=== PATIENT | male | born 1995 | race Caucasian/White ===

== ENCOUNTER 2018-08-24 12:48 | Emergency (ER) | payer BC ==
[2018-08-24 14:27] VITALS: BP 147/68
--- NOTE | 2018-08-24 14:46 | UC ---
Rectal Pain HPI - HPI Summary HPI Summary: 22-year-old male presents with complaints of intermittent rectal bleeding for the past year. States a year ago he an accident while snowboarding where he fell onto a railing causing an injury to his anus. States he had some swelling and tenderness of the anus for a few weeks after the injury and noticed a small amount of bleeding on the toilet paper after wiping. States since that time he has had a couple more episodes where he has noticed swelling and tenderness at the anus however none recently. States he notices blood on the toilet paper most days after he has a bowel movement. Denies fever, chills, weakness, dizziness, lightheadedness, abdominal pain, nausea, vomiting, constipation, diarrhea, melena, or gross rectal bleeding. - History Of Current Complaint Chief Complaint: UCGI Stated Complaint: PERSONAL Time Seen by Provider: 08/24/18 14:13 Hx Obtained From: Patient Pain Intensity: 0 - Allergies/Home Medications Allergies/Adverse Reactions: Allergies Allergy/AdvReac Type Severity Reaction Status Date / Time pollen extracts Allergy Eyes Verified 08/24/18 14:28 Itchy/Swollen/Red/Watery seasonal allergy Allergy Eyes Uncoded 08/24/18 14:28 Itchy/Swollen/Red/Watery Home Medications: Home Medications NK [No Home Medications Reported] 08/24/18 [History Confirmed 08/24/18] PMH/Surg Hx/FS Hx/Imm Hx Previously Healthy: Yes - Denies significant PMH - Surgical History Surgical History: Yes Surgery Procedure, Year, and Place: PE Tubes, 1999, [facility] - Family History Known Family History: Positive: Non-Contributory - Social History Occupation: Student Lives: Dormitory/Roommates Alcohol Use: Daily Substance Use Type: None Smoking Status (MU): Former Smoker Type: Cigars Amount Used/How Often: 2 cigars weekly When Did the Patient Quit Smoking/Using Tobacco: 2018 - Immunization History Most Recent Influenza Vaccination: 2013 Vaccination Up to Date: Yes Review of Systems All Other Systems Reviewed And Are Negative: Yes Constitutional: Negative: Fever, Chills Respiratory: Positive: Negative Cardiovascular: Positive: Negative Gastrointestinal: Positive: Other - Rectal bleeding. Negative: Abdominal Pain, Vomiting, Diarrhea, Nausea Genitourinary: Negative: Dysuria, Hematuria, Frequency, Urgency Musculoskeletal: Positive: Negative Neurological: Positive: Negative Is Patient Immunocompromised?: No Physical Exam - Summary Physical Exam Summary: GENERAL APPEARANCE: Well developed, well nourished, alert and cooperative, and appears to be in no acute distress. CARDIAC: Normal S1 and S2. No S3, S4 or murmurs. Rhythm is regular. There is no peripheral edema, cyanosis or pallor. Extremities are warm and well perfused. Capillary refill is less than 2 seconds. Peripheral pulses intact. LUNGS: Clear to auscultation without rales, rhonchi, wheezing or diminished breath sounds. ABDOMEN: Positive bowel sounds. Soft, nondistended, nontender. No guarding or rebound. No masses or hepatosplenomegally. RECTAL: No active bleeding, external hemorrhoid, or anal fissure noted. Normal rectal tone. MUSKULOSKELETAL: ROM intact to all extremities. No joint erythema or tenderness. Normal muscular development. Normal gait. SKIN: Skin normal color, texture and turgor with no lesions or eruptions. Triage Information Reviewed: Yes Vital Signs: Initial Vital Signs Temp 98.2 F 08/24/18 14:21 Pulse 61 08/24/18 14:21 Resp 18 08/24/18 14:21 BP 147/68 08/24/18 14:21 Pulse Ox 100 08/24/18 14:21 Vital Signs Reviewed: Yes Rectal Pain Course/Dx - Course Course Of Treatment: 22-year-old male presents with complaints of intermittent rectal bleeding for the past year. States a year ago he an accident while snowboarding where he fell onto a railing causing an injury to his anus. States he had some swelling and tenderness of the anus for a few weeks after the injury and noticed a small amount of bleeding on the toilet paper after wiping. States since that time he has had a couple more episodes where he has noticed swelling and tenderness at the anus however none recently. States he notices blood on the toilet paper most days after he has a bowel movement. Denies fever, chills, weakness, dizziness, lightheadedness, abdominal pain, nausea, vomiting, constipation, diarrhea, melena, or gross rectal bleeding. Afebrile. Vital signs stable. Overall exam was unremarkable. Rectal exam revealed no active bleeding, external hemorrhoid, or anal fissure. Suspect that symptoms may be related to an internal hemorrhoid or possibly a small anal fissure however considering the duration of symptoms I'm recommending that he follow up with gastroenterology for further evaluation. Also recommending a high-fiber diet and fiber supplement plenty of fluids to maintain a soft stool and avoid straining. Anticipatory guidance and warning symptoms reviewed with the patient. Verbalizes understanding and agrees with plan of care. - Differential Dx/Diagnosis Differential Diagnosis/HQI/PQRI: Hemorrhoid(s), Rectal Fissure, Rectal Foreign Body Provider Diagnosis: Rectal bleeding Discharge - Sign-Out/Discharge Documenting (check all that apply): Patient Departure All imaging exams completed and their final reports reviewed: No Studies - Discharge Plan Condition: Stable Disposition: HOME Patient Education Materials: Rectal Bleeding (ED) Referrals: No Primary Care Phys,NOPCP [Primary Care Provider] - Larry Pereira MD [Medical Doctor] - As Soon As Possible (Call for an appointment.) Additional Instructions: There was no active bleeding noted on your exam. I suspect that your symptoms are related to either an anal fissure or internal hemorrhoid. Considering ho long you have been having symptoms I would recommend that you see gastroenterology for a further evaluation. Eat a high fiber diet or use a fiber supplement such as Metamucil or Citrucel according to directions to help keep your stool soft. Be sure to drink plenty of fluids. Follow up with Dr. Pereira, gastroenterology. Call his office to schedule an appointment. Seek immediate medical attention in the emergency if you develop severe abdominal pain, become weak or dizzy, notice a large amount of blood in your stool or in the toilet, have dark black stools, or any worsening of symptoms. - Billing Disposition and Condition Condition: STABLE Disposition: Home
== END 2018-08-24 15:10 | disposition home or self-care (01) ==
LOC: UCCORT 12:48
DX: K62.5 Hemorrhage of anus and rectum (principal); Z91.09 Other allergy status, other than to drugs and biological substances; Z87.891 Personal history of nicotine dependence
CPT/HCPCS: 99212; G0463

== ENCOUNTER 2018-11-19 10:18 | Emergency (ER) | payer BC ==
[2018-11-19 10:45] VITALS: BP 144/85
--- NOTE | 2018-11-19 11:33 | UC ---
Skin Complaint HPI - HPI Summary HPI Summary: Pt presents with request for staple removal from scalp. Pt had kecia placed a [facility] ER on 11/12/18. Pt states that he was drunk and fell down. - History of Current Complaint Chief Complaint: UCGeneralIllness Time Seen by Provider: 11/19/18 10:42 Stated Complaint: STAPLE REMOVAL[facility]ONE AT [facility] Hx Obtained From: Patient Onset/Duration: Sudden Onset, Resolved Skin Exposure Onset/Duration: Days Ago - 7 Timing: Constant Onset Severity: Mild Current Severity: None Pain Intensity: 0 Pain Scale Used: 0-10 Numeric Location: Discrete - scalp Aggravating Factor(s): Touch Alleviating Factor(s): Other - kecia Associated Signs & Symptoms: Positive: Negative Related History: Trauma - fall and laceration - Allergy/Home Medications Allergies/Adverse Reactions: Allergies Allergy/AdvReac Type Severity Reaction Status Date / Time pollen extracts Allergy Eyes Verified 11/19/18 10:42 Itchy/Swollen/Red/Watery seasonal allergy Allergy Eyes Uncoded 11/19/18 10:42 Itchy/Swollen/Red/Watery PMH/Surg Hx/FS Hx/Imm Hx Previously Healthy: Yes - Surgical History Surgical History: Yes Surgery Procedure, Year, and Place: PE Tubes, 1999, [facility] - Family History Known Family History: Positive: Non-Contributory - Social History Occupation: Student Lives: With Family Alcohol Use: Occasionally Substance Use Type: None Smoking Status (MU): Former Smoker Type: Cigars Amount Used/How Often: 2 cigars weekly Have You Smoked in the Last Year: Yes When Did the Patient Quit Smoking/Using Tobacco: 2018 - Immunization History Most Recent Influenza Vaccination: 2013 Vaccination Up to Date: Yes Review of Systems All Other Systems Reviewed And Are Negative: Yes Constitutional: Positive: Negative Skin: Positive: Other - sutures intact on scalp Eyes: Positive: Negative ENT: Positive: Negative Respiratory: Positive: Negative Cardiovascular: Positive: Negative Gastrointestinal: Positive: Negative Genitourinary: Positive: Negative Motor: Positive: Negative Neurovascular: Positive: Negative Musculoskeletal: Positive: Negative Neurological: Positive: Negative Psychological: Positive: Negative Is Patient Immunocompromised?: No Physical Exam Triage Information Reviewed: Yes Appearance: Well-Appearing Vital Signs: Initial Vital Signs Temp 97.4 F 11/19/18 10:42 Pulse 63 11/19/18 10:42 Resp 18 11/19/18 10:42 BP 144/85 11/19/18 10:42 Pulse Ox 100 11/19/18 10:42 Vital Signs Reviewed: Yes Eye Exam: Normal ENT Exam: Normal Dental Exam: Normal Neck exam: Normal Respiratory: Positive: No respiratory distress Musculoskeletal Exam: Normal Neurological Exam: Normal Psychological Exam: Normal Skin Exam: Other - three kecia intact on right side of crown of head. No drainage, no tendernes, no erytheam, skin well approximated Course/Dx - Differential Diagnoses - Skin Complaint Differential Diagnoses: Other - healing wound, staple removal - Diagnoses Provider Diagnosis: Removal of kecia, Healing laceration Discharge - Sign-Out/Discharge Documenting (check all that apply): Patient Departure All imaging exams completed and their final reports reviewed: No Studies - Discharge Plan Condition: Stable Disposition: HOME Patient Education Materials: Stitches Removal (ED) Referrals: [facility] [Outside] No Primary Care Phys,NOPCP [Primary Care Provider] - Additional Instructions: Please follow up with your your PCP as needed. - Billing Disposition and Condition Condition: STABLE Disposition: Home
== END 2018-11-19 10:56 | disposition home or self-care (01) ==
LOC: UCCORT 10:18
DX: Z48.02 Encounter for removal of sutures (principal); Z87.891 Personal history of nicotine dependence
CPT/HCPCS: 99211; G0463

== ENCOUNTER → 2019-02-12 | Day surgery (SDC) | payer BC ==
[~2019-02-12] MED LIST: Buffered Lidocaine 1% SYRIN* 1 ML/SYRINGE INTRADERM ONE; Bupivacaine 0.5%* 50 ML MDV VIAL ONE; Dexamethasone IV* 4 MG/ML 1 ML (4 MG) ONE; Famotidine IV* 10 MG/ML 2 ML (20 mg) IV ONE; Famotidine IV* 10 MG/ML 2 ML (20 mg) ONE; HYDROmorphone INJ1* 1 MG/ML SYRINGE IV PRN; Ketorolac INJ* 30 MG/ML 1 ML VIAL ONE; Labetalol IV* 5 MG/ML 20 ML VIAL ONE; Lactated Ringers 1000 ML Bag* 1,000 ML IV SCH; Lidocaine 1% INJ* 10 MG/ML 30 ML SDV ONE; Lidocaine 2% JELLY* 6 ML JELLY TOPICAL ONE; Lidocaine 2% PF * 5 ML VIAL ONE; Midazolam* 1 MG/ML 5 ML VIAL (5 MG) ONE; Naloxone* 0.4 MG/ML 1 ML VIAL IV PRN; Ondansetron INJ* 2 MG/ML VIAL IV PRN; Ondansetron INJ* 2 MG/ML VIAL ONE; Propofol* 10 MG/ML 20 ML BTL ONE; ceFAZolin 2 GM in NS PREMIX(*) 2 GM/100 ML BAG IVPB ONE; fentaNYL* 50 MCG/ML 2 ML VIAL (100 MCG VIAL) IV PRN; fentaNYL* 50 MCG/ML 2 ML VIAL (100 MCG VIAL) ONE
--- NOTE | 2019-02-12 12:55 | OP ---
Operative Report - Blank - Operative Report Date of Operation: 02/12/19 Note: OPERATIVE REPORT Pre-op: Julisa-anal drainage Post-Op: Same, pilonidal disease with sinus tract Procedure:Exam under anesthesia, excision of pilonidal disease, debridement of sinus tract and placement of drain Surgeon: MD Ada Asst: none Anes: general with local , Dr. Garcia IVF:min EBL:min Specimen: none Drain: blue vessel loop as drain Wound: 3 Findings: Pilonidal disease with sinus tract with external opening 2 cms from anal verge at 11 o'clock position To PACU
[2019-02-12 14:07] VITALS: BP 139/86
--- NOTE | 2019-02-12 21:42 | OP ---
DATE OF OPERATION: 02/12/19 - [facility] DATE OF : 89 SURGEON: Leonardo Caballero MD. T[place] MILL OPERATOR: None. ANESTHESIOLOGIST: Dr. Garcia. ANESTHESIA: General with local. PRE-OP DIAGNOSIS: Perianal drainage with external perianal opening. POST-OP DIAGNOSES: 1. Perianal drainage with external perianal opening. 2. Pilonidal disease with sinus tract. OPERATIVE PROCEDURE: Exam under anesthesia with excision of pilonidal disease, debridement of sinus tract, and placement of seton drain. IV FLUIDS: Minimal. ESTIMATED BLOOD LOSS: Minimal. SPECIMENS: None. DRAINS: One blue vessel loop as a drain. WOUND CLASSIFICATION: III. COMPLICATIONS: None. FINDINGS: The patient had pilonidal disease with midline pits in the upper tal cleft. On exam under anesthesia, there also was an external opening about 2 cm from the anal verge at about the 11 o'clock position in the prone position. Here with careful evaluation, it became evident that there was a communication between the external opening in the perianal area and the pilonidal disease. There was no evidence of perianal abscess or anal fistula. This area was opened and debrided and a drain was placed. DESCRIPTION OF PROCEDURE: Written and informed consent was obtained, preoperative antibiotics were administered, and the patient was taken to the operating room, placed in the supine position. Sequential compression devices were placed and general anesthesia was administered. He was then placed into prone jackknife position and the perianal area and buttocks were prepped and draped in the usual sterile fashion. Time-out verification was completed. On exam, it was apparent that there were 3 midline pits in the upper tal cleft without evidence of an abscess, drainage, erythema, or induration. At about the 11 o'clock position, 2 cm from the anal verge was an external chronic appearing opening. There was no evidence of abscess or other skin changes. Using an 18-gauge Angio catheter, I placed this into the external opening and injected hydrogen peroxide and this bubbled up through the midline pits in the cleft confirming a communication between the external opening and the pilonidal pits and it was evident this was pilonidal disease with an extended sinus tract exiting at a rather unusual location. It does not appear to be an anal fistula. I next proceeded to inject 0.5% Marcaine extensively within the area for postoperative pain relief. An elliptical incision was then made to excise the 3 midline pits of about a centimeter and a half. This was carried down through scar tissue and subcutaneous granulation tissue and hair, which was debrided. I was then able to pass the probe easily down to the external opening and I opened this external opening up with cautery. I used a curette to debride the entire length of the sinus tract of granulation tissue and other debris. This area was then irrigated. Rather than to proceed with a complete opening of the extended tract and wanting to discuss future surgical treatment for his apparent pilonidal disease , I placed a blue seton suture through the tract creating a loop and tied this with several 0 silk sutures to keep the tract open and draining and prevent abscess formation. Hemostasis was assured. Dry sterile dressings were applied. The patient tolerated the procedure well and was taken to the recovery room in stable condition. [id number]/CPS #: [id number] MTDMelanie
== END | disposition home or self-care (01) ==
LOC: OR 08:41
PROVIDERS: ATTEND Surgery
DX: L05.92 Pilonidal sinus without abscess (principal); K62.5 Hemorrhage of anus and rectum; K64.0 First degree hemorrhoids; Z87.891 Personal history of nicotine dependence
CPT/HCPCS: J0690; J1100; J1885; J2250; J2405; J2704; J3010; J3490

== ENCOUNTER 2019-03-25 10:28 | Emergency (ER) | payer BC ==
--- OUTSIDE RECORDS SUMMARY | 2019-03-25 10:42 | XMS REPORT | Continuity of Care Document ---
:1995 External Reference #:[id number] Author Name eLonardo Caballero MD (transmitted by agent of provider Alisa Fairbanks) Address [address] [place] [address] Problems Description No Information Available Social History Type Date Description Comments Sex Unknown ETOH Use Currently consumes alcohol varies daily Tobacco Use Start: Unknown Patient has never smoked Recreational Drug Use Current Drug User Marijuana Smoking Status Reviewed: 03/01/19 Patient has never smoked Exercise Type/Frequency Does not exercise Allergies, Adverse Reactions, Alerts Description No Known Drug Allergies Medications Description No Active Medications Immunizations Description No Information Available Vital Signs Date Vital Result Comment 03/01/2019 9:16am Heart Rate 64 /min Respiratory Rate 16 /min Body Temperature 97.3 F 02/23/2019 10:53am Heart Rate 72 /min Respiratory Rate 16 /min Body Temperature 97.6 F Results Description No Information Available Procedures Date Code Description Status 02/12/2019 69121 Excise Pilonidal Cyst Or Sinus Extensive Completed 01/27/2019 75203 Anoscopy Completed Medical Devices Description No Information Available Encounters Type Date Location Provider Dx Diagnosis Office Visit 01/27/2019 [facility] Leonardo Shirley05.91 Pilonidal cyst 1:30p Of Khai Caballero MD without abscess K62.5 Hemorrhage of anus and rectum K64.0 First degree hemorrhoids Assessments Date Code Description Provider 03/01/2019 L05.91 Pilonidal cyst without abscess Leonardo Caballero MD 02/12/2019 L05.91 Pilonidal cyst without abscess Leonardo Caballero MD 01/27/2019 L05.91 Pilonidal cyst without abscess Leonardo Caballero MD 01/27/2019 K62.5 Hemorrhage of anus and rectum Leonardo Caballero MD 01/27/2019 K64.0 First degree hemorrhoids Leonardo Caballero MD Plan of Treatment 03/01/2019 - Leonardo Caballero MDL05.91 Pilonidal cyst without abscessFollow up :4-5 weeks Functional Status Description No Information Available Mental Status Description No Information Available Referrals Description No Information Available
--- OUTSIDE RECORDS SUMMARY | 2019-03-25 10:42 | XMS REPORT | Continuity of Care Document ---
:1995 External Reference #:[id number] Author Name Leonardo Caballero MD (transmitted by agent of provider Alisa Fairbanks) Address [address] [place] [address] Problems Description No Information Available Social History Type Date Description Comments Sex Unknown ETOH Use Currently consumes alcohol varies daily Tobacco Use Start: Unknown Patient has never smoked Recreational Drug Use Current Drug User Marijuana Smoking Status Reviewed: 01/27/19 Patient has never smoked Exercise Type/Frequency Does not exercise Allergies, Adverse Reactions, Alerts Description No Known Drug Allergies Medications Description No Active Medications Immunizations Description No Information Available Vital Signs Date Vital Result Comment 01/27/2019 1:28pm Height 72 inches 6'0" Weight 180.00 lb Heart Rate 60 /min BP Systolic Sitting 120 mmHg BP Diastolic Sitting 84 mmHg Respiratory Rate 12 /min Body Temperature 98.3 F BMI (Body Mass Index) 24.4 kg/m2 Results Description No Information Available Procedures Date Code Description Status 01/27/2019 51260 Anoscopy Completed Medical Devices Description No Information Available Encounters Type Date Location Provider Dx Diagnosis Office Visit 01/27/2019 [facility] Leonardo Shirley05.91 Pilonidal cyst 1:30p Of Khai Caballero MD without abscess K62.5 Hemorrhage of anus and rectum K64.0 First degree hemorrhoids Assessments Date Code Description Provider 01/27/2019 L05.91 Pilonidal cyst without abscess Leonardo Caballero MD 01/27/2019 K62.5 Hemorrhage of anus and rectum Leonardo Caballero MD 01/27/2019 K64.0 First degree hemorrhoids Leonardo Caballero MD Plan of Treatment Future Appointment(s):02/23/2019 9:00 am - Leonardo Caballero MD at [facility]02/12/2019 2:30 pm - Leonardo Caballero MD at [facility]01/27/2019 - Leonardo Caballero MDL05.91 Pilonidal cyst without abscessFollow up:Please follow the instructions for the scheduling of your surgery. Please call if you have any questions or concerns.K62.5 Hemorrhage of anus and mwsvzeH92.0 First degree hemorrhoids Functional Status Description No Information Available Mental Status Description No Information Available Referrals Description No Information Available
--- OUTSIDE RECORDS SUMMARY | 2019-03-25 10:42 | XMS REPORT | Continuity of Care Document ---
:1995 External Reference #:[id number] Author Name Luiz Barillas MD (transmitted by agent of provider Rody Pardo) Address [address] [place] [address] Problems Description No Information Available Social History Type Date Description Comments Sex Unknown ETOH Use Currently consumes alcohol varies daily Tobacco Use Start: Unknown Patient has never smoked Recreational Drug Use Current Drug User Marijuana Smoking Status Reviewed: 02/23/19 Patient has never smoked Exercise Type/Frequency Does not exercise Allergies, Adverse Reactions, Alerts Description No Known Drug Allergies Medications Description No Active Medications Immunizations Description No Information Available Vital Signs Date Vital Result Comment 02/23/2019 10:53am Heart Rate 72 /min Respiratory Rate 16 /min Body Temperature 97.6 F 01/27/2019 1:28pm Height 72 inches 6'0" Weight 180.00 lb Heart Rate 60 /min BP Systolic Sitting 120 mmHg BP Diastolic Sitting 84 mmHg Respiratory Rate 12 /min Body Temperature 98.3 F BMI (Body Mass Index) 24.4 kg/m2 Results Description No Information Available Procedures Date Code Description Status 02/12/2019 18677 Excise Pilonidal Cyst Or Sinus Extensive Completed 01/27/2019 32049 Anoscopy Completed Medical Devices Description No Information Available Encounters Type Date Location Provider Dx Diagnosis Office Visit 01/27/2019 [facility]ardo Shirley05.91 Pilonidal cyst 1:30p Of Khai Caballero MD without abscess K62.5 Hemorrhage of anus and rectum K64.0 First degree hemorrhoids Assessments Date Code Description Provider 02/12/2019 L05.91 Pilonidal cyst without abscess Leonardo Caballero MD 01/27/2019 L05.91 Pilonidal cyst without abscess Leonardo Caballero MD 01/27/2019 K62.5 Hemorrhage of anus and rectum Leonardo Caballero MD 01/27/2019 K64.0 First degree hemorrhoids Leonardo Caballero MD Plan of Treatment 01/27/2019 - Leonardo Caballero [id number] Pilonidal cyst without abscessFollow up :Please follow the instructions for the scheduling of your surgery. Please call if you have any questions or concerns.K62.5 Hemorrhage of anus and nivpfqP70.0 First degree hemorrhoids Functional Status Description No Information Available Mental Status Description No Information Available Referrals Description No Information Available
[2019-03-25 10:46] VITALS: BP 127/85
--- NOTE | 2019-03-25 11:08 | UC ---
Throat Pain/Nasal [place] HPI - HPI Summary HPI Summary: 23-year-old male comes in with a chief complaint of sore throat headache. Been going on for about 4 days. Throat hurts worse when he swallows. Over-the- counter medicines to help some with the pain. No shortness of breath or chest congestion. - History of Current Complaint Chief Complaint: UCGeneralIllness Stated Complaint: ST Time Seen by Provider: 03/25/19 10:41 Pain Intensity: 7 - Allergies/Home Medications Allergies/Adverse Reactions: Allergies Allergy/AdvReac Type Severity Reaction Status Date / Time pollen extracts Allergy Eyes Verified 03/25/19 10:46 Itchy/Swollen/Red/Watery seasonal allergy Allergy Eyes Uncoded 03/25/19 10:46 Itchy/Swollen/Red/Watery PMH/Surg Hx/FS Hx/Imm Hx Previously Healthy: Yes - Surgical History Surgical History: Yes Surgery Procedure, Year, and Place: PE Tubes, [facility], [facility], - Family History Known Family History: Positive: Non-Contributory - Social History Alcohol Use: Weekly Alcohol Amount: 5-7x per week 1-10 drinks Substance Use Type: Cocaine, Marijuana Substance Use Comment - Amount & Last Used: cocaine 2x per month, daily marijuana Smoking Status (MU): Former Smoker Type: Cigars Amount Used/How Often: 2 cigars weekly Have You Smoked in the Last Year: Yes When Did the Patient Quit Smoking/Using Tobacco: 2018 - Immunization History Most Recent Influenza Vaccination: 2013 Vaccination Up to Date: Yes Review of Systems All Other Systems Reviewed And Are Negative: Yes Constitutional: Positive: Other - SEE HPI Skin: Positive: Negative Eyes: Positive: Negative ENT: Positive: Sore Throat Respiratory: Positive: Negative Cardiovascular: Positive: Negative Gastrointestinal: Positive: Negative Motor: Positive: Negative Neurovascular: Positive: Negative Musculoskeletal: Positive: Negative Neurological: Positive: Negative Psychological: Positive: Negative Is Patient Immunocompromised?: No Physical Exam Triage Information Reviewed: Yes Appearance: No Pain Distress, Well-Nourished, Ill-Appearing - MILD Vital Signs: Initial Vital Signs Temp 98.1 F 03/25/19 10:43 Pulse 95 03/25/19 10:43 Resp 18 03/25/19 10:43 BP 127/85 03/25/19 10:43 Pulse Ox 100 03/25/19 10:43 Vital Signs Reviewed: Yes Eye Exam: Normal Eyes: Positive: Conjunctiva Clear ENT: Positive: Pharyngeal erythema, Tonsillar swelling - 3+ RT, 2+ LEFT, Uvula midline, Other - No peritonsillar abscess appreciated on exam at this time.. Negative: Muffled voice, Hoarse voice Neck: Positive: Supple Respiratory: Positive: Lungs clear, Normal breath sounds, No respiratory distress Cardiovascular: Positive: RRR Musculoskeletal: Positive: Strength Intact, ROM Intact Neurological: Positive: Alert, Muscle Tone Normal Psychological: Positive: Age Appropriate Behavior Skin Exam: Normal Throat Pain/Nasal Course/Dx - Differential Dx/Diagnosis Provider Diagnosis: Strep pharyngitis Discharge ED - Sign-Out/Discharge Documenting (check all that apply): Patient Departure All imaging exams completed and their final reports reviewed: No Studies - Discharge Plan Condition: Stable Disposition: HOME Prescriptions: Amoxicillin PO (*) [Amoxicillin 875 MG (*)] 875 mg PO BID #20 tab Patient Education Materials: Strep Throat (ED) Referrals: [facility] [place] [facility] [Outside] Additional Instructions: FOLLOW UP WITH YOUR DOCTOR IF NOT COMPLETELY IMPROVED. GET REEVALUATED SOONER IF NOT IMPROVING OR YOUR CONDITION WORSENS OR ANY QUESTIONS OR CONCERNS. - Billing Disposition and Condition Condition: STABLE Disposition: Home
== END 2019-03-25 11:12 | disposition home or self-care (01) ==
LOC: UCCORT 10:28
DX: J02.0 Streptococcal pharyngitis (principal); R51 Headache; Z87.891 Personal history of nicotine dependence; Z91.09 Other allergy status, other than to drugs and biological substances
CPT/HCPCS: 87651; 99212; G0463

== ENCOUNTER 2019-04-03 19:16 | Emergency (ER) | payer BC ==
[2019-04-03 19:57] VITALS: BP 152/86
--- NOTE | 2019-04-03 20:38 | UC ---
Skin Complaint HPI - HPI Summary HPI Summary: Pt. dx'd with strep 03/25/19, rx'd amoxicillin 875 and has taken it for 9 days , has one more dose. today developed diarrhea and a rash. diarrhea started this morning and pt. noticed this afternoon fine rash on his abd/chest and arms. diarrhea was watery and approx 6 episodes. denies abd cramping or fever or sick contacts. Rash is not itchy. - History of Current Complaint Chief Complaint: UCGeneralIllness Time Seen by Provider: 04/03/19 19:57 Stated Complaint: CHILLS/DIARRHEA/CONGESTION Hx Obtained From: Patient Pain Intensity: 0 Aggravating Factor(s): Nothing Alleviating Factor(s): Nothing - Allergy/Home Medications Allergies/Adverse Reactions: Allergies Allergy/AdvReac Type Severity Reaction Status Date / Time pollen extracts Allergy Eyes Verified 04/03/19 19:49 Itchy/Swollen/Red/Watery seasonal allergy Allergy Eyes Uncoded 04/03/19 19:49 Itchy/Swollen/Red/Watery Home Medications: Home Medications Ibuprofen TAB* [Advil TAB*] 400 mg PO Q6H PRN 04/03/19 [History Confirmed ] PMH/Surg Hx/FS Hx/Imm Hx - Additional Past Medical History Additional PMH: no chronic conditions. Previously Healthy: Yes - Surgical History Surgical History: Yes Surgery Procedure, Year, and Place: PE Tubes, 1999, [facility], - Family History Known Family History: Positive: Non-Contributory - Social History Alcohol Use: Weekly Alcohol Amount: 5-7x per week 1-10 drinks Substance Use Type: Cocaine, Marijuana, Other Substance Use Comment - Amount & Last Used: cocaine 2x per month, daily marijuana--pt states he stopped 01/2019 Smoking Status (MU): Former Smoker Type: Cigars Amount Used/How Often: 2 cigars weekly Have You Smoked in the Last Year: Yes When Did the Patient Quit Smoking/Using Tobacco: 2018 - Immunization History Most Recent Influenza Vaccination: 2013 Vaccination Up to Date: Yes Review of Systems All Other Systems Reviewed And Are Negative: Yes Constitutional: Negative: Fever, Chills Skin: Positive: Rash ENT: Negative: Sore Throat Respiratory: Positive: Negative Cardiovascular: Positive: Negative Gastrointestinal: Positive: Diarrhea. Negative: Abdominal Pain Musculoskeletal: Negative: Edema Neurological: Negative: Headache Physical Exam Triage Information Reviewed: Yes Appearance: Well-Appearing Vital Signs: Initial Vital Signs Temp 99.8 F 04/03/19 19:51 Pulse 100 04/03/19 19:51 Resp 15 04/03/19 19:51 BP 152/86 04/03/19 19:51 Pulse Ox 100 04/03/19 19:51 Vital Signs Reviewed: Yes Neck: Positive: Supple, Nontender, No Lymphadenopathy Respiratory Exam: Normal Cardiovascular Exam: Normal Abdomen Description: Positive: Nontender, Soft Skin: Positive: Rashes - fine macular rash on chest/abd/back sparing extremities. Course/Dx - Course Course Of Treatment: Rash is suspected drug allergy given that he is nearly finished w/ antibx. To be sure I have recommended sample supervisor in a few months to rule in drug allergy. bp elevated but abd exam is unremarkable. diarrhea may be viral vs. antibx side effect. we disc how to manage this. he has remained afebrile. - Differential Diagnoses - Skin Complaint Differential Diagnoses: Allergic Reaction, Local Allergic Reaction - Diagnoses Provider Diagnosis: Allergic drug rash, Diarrhea Discharge ED - Sign-Out/Discharge Documenting (check all that apply): Patient Departure All imaging exams completed and their final reports reviewed: No Studies - Discharge Plan Condition: Good Disposition: HOME Patient Education Materials: Gastroenteritis (ED) Referrals: No Primary Care Phys,NOPCP [Primary Care Provider] - Additional Instructions: Please follow up with an sample supervisor in a few months to be evaluated for drug allergy. - Billing Disposition and Condition Condition: GOOD Disposition: Home
== END 2019-04-03 20:45 | disposition home or self-care (01) ==
LOC: UCCORT 19:16
DX: L27.0 Generalized skin eruption due to drugs and medicaments taken internally (principal); T36.0X5A Adverse effect of penicillins, initial encounter; R19.7 Diarrhea, unspecified; Z87.891 Personal history of nicotine dependence; Z91.09 Other allergy status, other than to drugs and biological substances; Y92.9 Unspecified place or not applicable
CPT/HCPCS: 99211; G0463